=== PATIENT | male | born 1990 | race Caucasian/White ===

== ENCOUNTER 2021-03-16 08:54 | Emergency (ER) | payer OTHER ==
[2021-03-16] MEDS ORDERED: Diphtheria,Pertussis(Acell),Tetanus Vaccine 0.5 ML Syringe IM ONE (09:53)
[2021-03-16] MEDS ORDERED: Bacitracin Oint 1 GM U/D Packet TOP ONE (10:00)
--- NOTE | 2021-03-16 10:05 | EDM.PDOC ---
ED HPI GENERAL MEDICAL PROBLEM - General Chief Complaint: Lower Extremity Injury/Pain Stated Complaint: TOE INJURY Time Seen by Provider: 03/16/21 09:30 Source of Information: Reports: Patient History Limitations: Reports: No Limitations - History of Present Illness INITIAL COMMENTS - FREE TEXT/NARRATIVE: Patient comes emergency department today with an injury of his left great toe. Just prior to arrival the patient was at work when he was wearing tennis shoes and had a large metal object fall striking him on the left great toe. He is able to ambulate with minimal to no pain. He can just feel that it is somewhat swollen. He denies any paresthesias or change in the functionality of his left foot. He has no paresthesias of the left foot. No other injury other than to his left great toe. He is unsure of when his last tetanus vaccination was. - Related Data Allergies Allergy/AdvReac Type Severity Reaction Status Date / Time No Known Allergies Allergy Verified 03/16/21 09:00 Home Meds: Home Meds Ciprofloxacin HCl [Cipro] 500 mg PO BID #10 tablet 03/16/21 [Rx] Social & Family History - Tobacco Use Tobacco Use Status *Q: Current Every Day Tobacco User Years of Tobacco use: 15 Packs/Tins Daily: 1 Second Hand Smoke Exposure: Yes - Caffeine Use Caffeine Use: Reports: None - Recreational Drug Use Recreational Drug Use: No Review of Systems - Review of Systems Review Of Systems: Comprehensive ROS is negative, except as noted in HPI. ED EXAM, GENERAL - Physical Exam Exam: See Below Exam Limited By: No Limitations General Appearance: Alert, WD/WN, No Apparent Distress Respiratory/Chest: No Respiratory Distress Cardiovascular: Normal Peripheral Pulses Peripheral Pulses: 2+: Posterior Tibial (L), Posterior Tibial (R), Dorsalis Pedis (L), Dorsalis Pedis (R) Extremities: Other (He is able to flex and extend at the IP and MTP joint appropriately.). No: Normal Inspection (Examination of the left foot. On the left great toe at the very base of the cuticle on the lateral aspect there is a superficial abrasion that is not bleeding. There is no subungual hematoma. Small amount of swelling to the distal aspect of the great toe. The nail is unremarkable. ) Course - Vital Signs Last Recorded V/S: Last Vital Signs Temp 98.8 F 03/16/21 08:56 Pulse 69 03/16/21 08:56 Resp 20 03/16/21 08:56 BP 141/93 H 03/16/21 08:56 Pulse Ox 100 03/16/21 08:56 - Orders/Labs/Meds Orders: Active Orders 24 hr Category Date Time Status Foot 2V Lt [CR] Stat Exams 03/16/21 09:15 Taken Meds: Medications Discontinued Medications Generic Name Dose Route Start Last Admin Trade Name Shyam PRN Reason Stop Dose Admin Bacitracin 1 dose 03/16/21 10:00 03/16/21 10:05 Bacitracin Oint 1 Gm U/D Packet TOP 03/16/21 10:01 1 dose ONETIME ONE Administration Diphtheria/Tetanus/Acell Pertussis 0.5 ml 03/16/21 09:53 03/16/21 09:55 Diphtheria,Pertussis(Acell),Tetanus Vaccine 0.5 Ml Syringe IM 03/16/21 09:54 0.5 ml .ONCE ONE Administration - Radiology Interpretation Free Text/Narrative:: X-ray of the left great toe initially reviewed extemporaneously by myself. I see no subluxation or dislocation of the entire to the left foot. There appears to be a comminuted distal tuft fracture of the distal phalange E of the left great toe. Radiological review to follow. Patient Name: LORENA KENDALL Date of : 1990 Procedure: XRAY FOOT 2 VIEWS LT Date of Service: 03/16/2021 EXAM: XRAY FOOT 2 VIEWS LT INDICATION: ICD-10 T14.90XA Trauma COMPARISON(S): None Available FINDINGS: Frontal and lateral views of the left foot were obtained 03/16/2021-no comparisons. Joint spaces are preserved. Soft tissues are grossly unremarkable. There is a slightly distracted fracture in satisfactory position and alignment at the ungual tuft-distal shaft area of the distal phalanx of the great toe. No other bone or joint abnormality was identified. Impression distal phalangeal fracture in good position and alignment of the gr eat toe. Finalized by: Stephane Fiore MD on 03/16/2021 2:49 PM CDT Patient/Procedure Information: [facility] MRN/YANET: [id number]/ Order Number: [id number] Accession Number: [id number] Ordering Provider: NIKOLAS TOUSSAINT Authorizing Provider: NIKOLAS TOUSSAINT - Re-Assessments/Exams Free Text/Narrative Re-Assessment/Exam: 03/16/21 16:50 The area of the abrasion is rather superficial. This was soaked and cleansed. Bacitracin and bandage was applied. Tetanus immunization was updated. I relayed my concerns of a fracture to the distal great toe. It is not displaced at this time. Best course of action at this time is conservative management with a hard soled shoe or surgical shoe. He does not want any surgical shoe at this time. He has some very hard soled boots that he typically wears but does not today. As this injury did happen within a stent issues or concerns for an infection from Pseudomonas would be elevated. We will place him on prophylactic Cipro 1 tablet p.o. twice daily for the next 5 days. Follow-up if any concerns. Discharge directions as below are explained to the patient is comfortable this plan his questions were answered. Departure - Departure Time of Disposition: 09:58 Disposition: Home, Self-Care 01 Clinical Impression: Abrasion, toe without infection Fracture of toe of left foot Qualifiers: Encounter type: initial encounter Toe: great toe Fracture type: closed Phalanx: distal Fracture alignment: nondisplaced Qualified Code(s): S92.425A - Nondisplaced fracture of distal phalanx of left great toe, initial encounter for closed fracture - Discharge Information Prescriptions: Ciprofloxacin HCl [Cipro] 500 mg PO BID #10 tablet Instructions: RICE Therapy for Routine Care of Injuries, [id number], Toe Fracture, [id number], Pain Medicine Instructions, [id number], Abrasion, [id number] Referrals: PCP,Unknown [Primary Care Provider] - Forms: ED Department Discharge Additional Instructions: Tylenol and or Ibuprofen as needed for pain. Cleanse the area twice daily with soap and water. Bacitracin and bandage until healed. Watch for signs of infection. Cipro 1 tablet twice daily for the next 5 days for prophylaxis infection due to the injury in a tennis shoe. [facility]. Hard soled show or boot for comfort. May return back to work tomorrow. RICE therapy as per discharge instructions. Return to the ED if new or worsening symptoms. Follow with PCP in a week for recheck sooner if concerns. Sepsis Event Note (ED) - Evaluation Sepsis Screening Result: No Definite Risk - Focused Exam Vital Signs: Vital Signs Temp Pulse Resp BP Pulse Ox 03/16/21 08:56 98.8 F 69 20 141/93 H 100 - My Orders Last 24 Hours: My Active Orders 03/16/21 09:15 Foot 2V Lt [CR] Stat - Assessment/Plan Last 24 Hours: My Active Orders 03/16/21 09:15 Foot 2V Lt [CR] Stat
== END 2021-03-16 10:16 | disposition home or self-care (01) ==
LOC: LL.ED 08:54
DX: S92.425A Nondisplaced fracture of distal phalanx of left great toe, initial encounter for closed fracture (principal); Z72.0 Tobacco use; Z23 Encounter for immunization; W20.8XXA Other cause of strike by thrown, projected or falling object, initial encounter; Y99.0 Civilian activity done for income or pay
CPT/HCPCS: 73620-LT; 90471; 90715; 99283; 99283-25